=== PATIENT | male | born 1955 | race Caucasian/White ===

== ENCOUNTER 2017-01-18 20:02 | Emergency (ER) | payer OTHER ==
[~2017-01-18] VITALS: Ht 165.1 cm; Wt 68.0 kg
[2017-01-18] MEDS ORDERED: ACYCLOVIR 400 MG TABLET PO ONE (20:45)
--- NOTE | 2017-01-18 21:00 | NUR ---
Patient observed at the registration window complaining and accusing staff of "trying to scam him." Patient stated that "nobody told me this was an emergency room" and continually stated that he did not have an emergency and that he just wanted to see a doctor. Education was provided regarding EMTALA and billing. Nursing Plug [employer] Notified. Patient was reluctant to take ACI and refused to sign.
== END 2017-01-18 21:04 | disposition home or self-care (01) ==
LOC: ER 20:03
DX: B02.9 Zoster without complications (principal); E78.5 Hyperlipidemia, unspecified; K21.9 Gastro-esophageal reflux disease without esophagitis
CPT/HCPCS: A4663